=== PATIENT | female | born 1970 | race Caucasian/White ===

== ENCOUNTER 2016-10-12 09:51 | Emergency (ER) | payer MEDICARE, MEDICAID ==
[2016-10-12 10:01] VITALS: BP 128/64
--- NOTE | 2016-10-12 11:27 | RAD ---
Indication: Left lower quadrant pain Real-time sonography of the pelvis was performed. The uterus measures 5.2 x 3.4 x 4.5 cm. This is retroflexed. Endometrial echo measures 3 mm. Heterogeneous body is noted consistent with myomatous changes. There is a fibroid measuring 13 x 13 x 12 mm in the anterior. The remainder of the myometrium appears to BE heterogeneous. Several nabothian cysts are noted in the cervix. There may be a calcified nabothian cyst noted. Right ovary measures 4.3 x 1.9 x 3.1 cm. Left ovary measures 3.5 x 2.1 x 1.8 cm. Follicles are noted in both ovaries. Doppler interrogation demonstrates flow in both ovaries. IMPRESSION: No adnexal masses are noted. No evidence of torsion is noted. Numerous changes of the uterus are noted.
--- NOTE | 2016-10-12 12:11 | UC ---
Abdominal Pain Female HPI - HPI Summary HPI Summary: 2.5 MONTHS AGO DIAGNOSED WITH OVARIAN CYST. ONE WEEK OF WORSENING LLW PAIN AND TENDERNESS. NO FEVER. NO DIARRHEA OR CONSTIPATION. NO TRAUMA. - History of Current Complaint Chief Complaint: UCAbdominalPain Stated Complaint: LEFT LOWER ABDOMINAL PAIN Time Seen by Provider: 10/12/16 10:01 Hx Obtained From: Patient, Family/Client Solutions Manager Hx Last Menstrual Period: had ablasion ?: No Onset/Duration: Gradual Onset, Lasting Days, Still Present Severity Initially: Moderate Severity Currently: Moderate Pain Intensity: 5 Pain Scale Used: 0-10 Numeric Location: Discrete At: LLQ, Suprapubic Radiates: No Character: Aching, Cramping, Sharp Aggravating Factor(s): Nothing Alleviating Factor(s): Nothing Associated Signs and Symptoms: Negative: Fever, Cough, Chest Pain, Constipation , Blood in Stool, Urinary Symptoms, Decreased Appetite, Vaginal Bleeding, Nausea , Vomiting, Diarrhea - Risk Factors Ectopic Risk Factor: Negative Ovarian Torsion Risk Factor: Negative Allergies/Adverse Reactions: Allergies Allergy/AdvReac Type Severity Reaction Status Date / Time Levetiracetam [From Keppra] Allergy Hives Verified 10/12/16 10:01 Penicillins [PCN] Allergy Unknown Verified 10/12/16 10:01 Reaction Details Phenytoin [From Dilantin] Allergy Hives Verified 10/12/16 10:01 Sulfa Antibiotics Allergy Hives Verified 10/12/16 10:01 PMH/Surg Hx/FS Hx/Imm Hx Previously Healthy: Yes - Surgical History Surgical History: Yes Surgery Procedure, Year, and Place: LT KNEE ACL SURGERY 2008 [facility]. RT ARM SURGERY(NERVE ENTRAPMENT) 2002 [facility]. TUBAL LIGATION 1992. NOVASURE ABLATION [facility]. TONSILLECTOMY 2004. LITHOTRIPSY 04/2015 - Family History Known Family History: Positive: None Negative: Renal Disease - Social History Lives: With Family Alcohol Use: None Substance Use Type: None Smoking Status (MU): Heavy Every Day Tobacco Smoker Type: Cigarettes Amount Used/How Often: 1/2 PPD Length of Time of Smoking/Using Tobacco: 35 YRS Have You Smoked in the Last Year: Yes Cessation Counseling: Patient Advised to Stop Review of Systems Constitutional: Negative Skin: Negative Eyes: Negative ENT: Negative Respiratory: Negative Cardiovascular: Negative Gastrointestinal: Abdominal Pain Genitourinary: Negative Motor: Negative Neurovascular: Negative Musculoskeletal: Negative Neurological: Negative Psychological: Negative All Other Systems Reviewed And Are Negative: Yes Physical Exam Triage Information Reviewed: Yes Vital Signs: Initial Vital Signs Temp 99 F 10/12/16 09:56 Pulse 96 10/12/16 09:56 Resp 16 10/12/16 09:56 BP 128/64 10/12/16 09:56 Pulse Ox 100 10/12/16 09:56 Eye Exam: Normal ENT Exam: Normal ENT: Positive: Normal ENT inspection, TMs normal Dental Exam: Normal Neck exam: Normal Neck: Positive: Supple, Nontender Respiratory Exam: Normal Respiratory: Positive: Chest non-tender, Lungs clear, Normal breath sounds, No respiratory distress Cardiovascular Exam: Normal Cardiovascular: Positive: RRR, No Murmur, Pulses Normal Abdomen Description: Positive: No Organomegaly, Soft, Bruit. Negative: Nontender - LLQ, SUPRAPUBIC TENDERNESS, CVA Tenderness (R), CVA Tenderness (L), Distended, Guarding, McBurney's Point Tenderness, Splenomegaly Bowel Sounds: Positive: Present Musculoskeletal Exam: Normal Neurological Exam: Normal Psychological Exam: Normal Psychological: Positive: Normal Response To Family Skin Exam: Normal Abd Pain Female Course/Dx - Course Course Of Treatment: PATINET ADVISED TO SEEK EVALUATION AT EMERGENCY DEPARTMENT IF CONDITION CONTIUNUES, WORSENS, OR IF NEW SYMPTOMS DEVELOP. - Differential Dx/Diagnosis Differential Diagnosis: Abdominal Aortic Aneurysm, Bowel Obstruction, Diverticulitis, Hepatitis, Irritable Bowel Syndrome, Ovarian Cyst, Pancreatitis , Pelvic Inflammatory Disease, Urinary Tract Infection Provider Diagnoses: URINARY TRACT INFECTION, ANTERIOR UTERINE FIBROID, SEVERAL CERVICAL NABOTHIAN CYSTS Discharge - Discharge Plan Condition: Stable Disposition: HOME Prescriptions: Ciprofloxacin TAB* [Cipro 500 MG TAB*] 500 mg PO BID #10 tab Phenazopyridine TAB* [Pyridium 100 mg TAB*] 100 mg PO TID PRN #15 tab PRN Reason: Pain Patient Education Materials: Urinary Tract Infection in Women (ED), Abdominal Pain (ED) Referrals: Stefani Palm MD [Primary Care Provider] -
== END 2016-10-12 11:55 | disposition home or self-care (01) ==
LOC: UCCORT 09:51
DX: N39.0 Urinary tract infection, site not specified (principal); D25.9 Leiomyoma of uterus, unspecified; N88.8 Other specified noninflammatory disorders of cervix uteri; Z88.0 Allergy status to penicillin; Z32.02 Encounter for pregnancy test, result negative; F17.210 Nicotine dependence, cigarettes, uncomplicated
CPT/HCPCS: 76830; 81003; 84702; 87086; 99212; G0463

== ENCOUNTER 2017-12-23 11:11 | Emergency (ER) | payer MEDICARE, MEDICAID ==
[2017-12-23 11:57] VITALS: BP 111/67
--- NOTE | 2017-12-23 12:14 | UC ---
Back Pain HPI - HPI Summary HPI Summary: Pt c/o sudden onset of lower back pain that began the morning of 12/22/17. Pt has hx of bulging discs and is currently taking etodolac Q12h for pain management. Pt denies numbness, in lower extremities, no perineal or saddle numbness, no loss of bowel or bladder control. Pt reports that she drove herself to [place] - History of Current Complaint Chief Complaint: UCBackPain Stated Complaint: BACK PAIN Time Seen by Provider: 12/23/17 11:55 Hx Obtained From: Patient Hx Last Menstrual Period: UTERINE MICROABLATION 9 YRS AGO ?: No Onset/Duration: Sudden Onset, Lasting Days, Still Present Timing: Constant Severity Initially: Severe Severity Currently: Severe Pain Intensity: 10 Back Pain: Is Discrete @ - left upper buttokc, Radiates To - left hip and groin Character: Sharp, Dull, Aching, Stiffness, Burning Aggravating Factor(s): Movement Alleviating Factor(s): Nothing Associated Signs And Symptoms: Positive: Negative - Risk Factors AAA Risk Factors: Negative TAD Risk Factors: Negative Cauda Equina Risk Factors: Negative Epidural Abscess Risk Factors: Negative - Allergies/Home Medications Allergies/Adverse Reactions: Allergies Allergy/AdvReac Type Severity Reaction Status Date / Time levetiracetam [From Keppra] Allergy Hives Verified 12/23/17 11:43 Penicillins Allergy Hives Verified 12/23/17 11:43 phenytoin [From Dilantin] Allergy Hives Verified 12/23/17 11:43 Sulfa (Sulfonamide Allergy Hives Verified 12/23/17 11:43 Antibiotics) several seizure meds Allergy Unknown Unknown Uncoded 12/23/17 11:44 Reaction Details PMH/Surg Hx/FS Hx/Imm Hx Previously Healthy: Yes - Surgical History Surgical History: Yes Surgery Procedure, Year, and Place: LT KNEE ACL SURGERY 2008 [facility]. RT ARM SURGERY(NERVE ENTRAPMENT) 2002 [facility]. TUBAL LIGATION 1992. NOVASURE ABLATION [facility]. TONSILLECTOMY 2004. LITHOTRIPSY 04/2015 - Family History Known Family History: Positive: None Negative: Renal Disease - Social History Occupation: Works From/At Home Lives: With Family Alcohol Use: Rare Substance Use Type: None Smoking Status (MU): Light Every Day Tobacco Smoker Type: Cigarettes Amount Used/How Often: LESS THAN 1/2 PPD Length of Time of Smoking/Using Tobacco: 35 YRS Have You Smoked in the Last Year: Yes Household Exposure Type: Cigarettes Review of Systems Constitutional: Negative Skin: Negative Eyes: Negative ENT: Negative Respiratory: Negative Cardiovascular: Negative Gastrointestinal: Negative Genitourinary: Negative Motor: Decreased ROM - low back Neurovascular: Negative Musculoskeletal: Arthralgia - low back, Decreased ROM - low back, Myalgia Neurological: Negative Psychological: Negative Is Patient Immunocompromised?: No All Other Systems Reviewed And Are Negative: Yes Physical Exam Triage Information Reviewed: Yes Appearance: Pain Distress Vital Signs: Initial Vital Signs Temp 98.2 F 12/23/17 11:46 Pulse 64 12/23/17 11:46 Resp 18 12/23/17 11:46 BP 111/67 12/23/17 11:46 Pulse Ox 99 12/23/17 11:46 Vital Signs Reviewed: Yes Eye Exam: Normal ENT Exam: Normal Dental Exam: Normal Neck exam: Normal Respiratory Exam: Normal Respiratory: Positive: Normal breath sounds Cardiovascular Exam: Normal Musculoskeletal: Positive: Strength Limited @ - low back, ROM Limited @ - low back Neurological Exam: Normal Psychological Exam: Normal Skin Exam: Normal Back Pain Course/Dx - Differential Dx/Diagnosis Differential Diagnosis/HQI/PQRI: Herniated Disc, Strain, Sprain Provider Diagnoses: low back pain Discharge - Sign-Out/Discharge Documenting (check all that apply): Patient Departure All imaging exams completed and their final reports reviewed: No Studies - Discharge Plan Condition: Stable Disposition: HOME Prescriptions: Cyclobenzaprine TAB* [Flexeril 10 MG TAB*] 10 mg PO Q8H PRN #15 tab PRN Reason: Pain predniSONE TAB* [Deltasone 10 MG TAB*] 30 mg PO DAILY #12 tab Patient Education Materials: Acute Low Back Pain (ED), Lower Back Exercises (ED ) Referrals: Sindi Lopez MD [Primary Care Provider] - As Soon As Possible - Billing Disposition and Condition Condition: STABLE Disposition: Home - Attestation Statements Provider Attestation: I was available for consult. This patient was seen by the LISANDRO. The patient was not presented to, seen by, or examined by me. -Rajni
== END 2017-12-23 12:32 | disposition home or self-care (01) ==
LOC: UCCORT 11:11
DX: M54.5 Low back pain (principal); Z88.0 Allergy status to penicillin; Z88.1 Allergy status to other antibiotic agents; Z88.8 Allergy status to other drugs, medicaments and biological substances; F17.210 Nicotine dependence, cigarettes, uncomplicated
CPT/HCPCS: 81003; 87077; 87086; 87186; 99212; G0463